=== PATIENT | female | born 1955 | race African-American/Black ===

== ENCOUNTER 2024-12-07 21:19 | Inpatient (IN) | payer OTHER, MEDICAID ==
[~2024-12-07] VITALS: Ht 162.6 cm; Wt 119.3 kg
[2024-12-07 22:21] LABS: BASOPHILS % 0.7 % (0.0-2.0); EOSINOPHILS % 3.8 % (0.0-5.0); HEMATOCRIT. 34.1 % (36.0-48.0); HEMOGLOBIN. 10.8 g/dL (12.0-16.0); LYMPHOCYTES % 26.6 % (20.0-50.0); MEAN CORPUSCULAR HEMOGLOBIN 26.2 pg (28.0-32.0); MEAN CORPUSCULAR HGB CONC 31.8 g/dL (31.0-37.0); MEAN CORPUSCULAR VOLUME 82.4 fL (81.0-99.0); MEAN PLATELET VOLUME 8.2 fl (7.4-10.4); MONOCYTES % 8.3 % (2.0-8.0); NEUTROPHILS % 60.6 % (40.0-76.0); PLATELET 270 x1000/uL (130-400); RED BLOOD CELL COUNT 4.14 mill/uL (4.2-5.4); RED CELL DISTRIBUTION WIDTH 15.5 % (11.6-14.6); WHITE BLOOD COUNT 6.8 x1000/uL (4.5-11.0)
[2024-12-07 22:39] LABS: POTASSIUM 5.3 mEq/L (3.5-5.1)
[2024-12-07 22:41] LABS: CALCIUM 8.5 mg/dL (8.7-10.4)
[2024-12-08] VITALS (9 sets, daily range): BP systolic 112–180; BP diastolic 47–95; PULSE 70–100; RESP 18–20; TEMP 36.3–36.6; O2SAT 95–100
[2024-12-08] MEDS ORDERED: FUROSEMIDE 100MG/10ML VIAL IV ONE (00:45)
[2024-12-08] MEDS ORDERED: CALCIUM GLUCONATE 1,000 MG in DEXT 5% WATER 100 ML IV ONE (00:45)
[2024-12-08] MEDS: INSULIN REGULAR (HUMULIN R) 1000UNITS/10ML VIAL IV ONE (01:43)
[2024-12-08] MEDS: DEXTROSE 50% WATER 50ML SYRINGE IV ONE (01:43)
[2024-12-08] MEDS: CALCIUM GLUCONATE 1GM PREMIX 50 ML IV NR (01:44)
[2024-12-08] MEDS: FUROSEMIDE 40MG/4ML VIAL IV NR (01:44)
[2024-12-08] MEDS: ALBUTEROL (0.083%) 2.5MG/3ML NEB HHN SCH (02:15)
[2024-12-08] MEDS: LISINOPRIL 40MG TABLET PO ONE (02:55)
[2024-12-08] MEDS ORDERED: CLONIDINE 0.1MG TABLET PO PRN (05:45)
[2024-12-08] MEDS ORDERED: DEXTROSE 50% WATER 50ML SYRINGE IV PRN (05:45)
[2024-12-08] MEDS ORDERED: LIP40 PO (05:55)
[2024-12-08] MEDS ORDERED: LISI40TA13 MT (05:55)
[2024-12-08] MEDS ORDERED: NALOXONE HCL 0.4MG/ML VIAL IV PRN (06:00)
[2024-12-08] MEDS: HYDROCODONE/ACETAMINOPHEN 10/325MG TABLET PO PRN (06:06)
[2024-12-08] MEDS: HYDRALAZINE HCL 50MG TABLET PO SCH (06:06)
[2024-12-08] MEDS: SODIUM ZIRCONIUM CYCLOSILICATE 10GM/PACKET PO NR (06:07)
[2024-12-08] MEDS: INSULIN LISPRO 100 UNITS/ML SUBCUT SCH (06:14)
[2024-12-08] MEDS: BLOOD SUGAR DIAGNOSTIC STRIP TEST SCH (06:14)
[2024-12-08] MEDS: AMLODIPINE 10MG TABLET PO SCH (08:35)
[2024-12-08] MEDS ORDERED: DOCUSATE SODIUM 100MG CAPSULE PO PRN (09:15)
[2024-12-08] MEDS ORDERED: ACETAMINOPHEN 325MG TABLET PO PRN (09:15)
[2024-12-08] MEDS ORDERED: IPRATROPIUM/ALBUTEROL 0.5-3(2.5)MG/3ML NEB HHN PRN (09:15)
[2024-12-08] MEDS: ACETAMINOPHEN 325MG TABLET PO PRN (09:32)
[2024-12-08] MEDS: SODIUM CHLORIDE 0.45% 1,000 ML IV SCH (09:33)
[2024-12-08] MEDS ORDERED: SODIUM ZIRCONIUM CYCLOSILICATE 10GM/PACKET PO ONE (10:00)
[2024-12-08 10:59] LABS: POTASSIUM 5.5 mEq/L (3.5-5.1)
[2024-12-08 11:01] LABS: CALCIUM 9.1 mg/dL (8.7-10.4)
[2024-12-08 11:05] LABS: CREATININE 3.2 mg/dL (0.6-1.0)
[2024-12-08 11:14] LABS: HEMATOCRIT 31.7 % (36.0-48.0); HEMOGLOBIN 9.6 g/dL (12.0-16.0); MEAN CORPUSCULAR HEMOGLOBIN 25.2 pg (28.0-32.0); MEAN CORPUSCULAR HGB CONC 30.4 g/dL (31.0-37.0); MEAN CORPUSCULAR VOLUME 82.8 fL (81.0-99.0); PLATELET 237 x1000/uL (130-400); RED BLOOD CELL COUNT 3.83 mill/uL (4.2-5.4); RED CELL DISTRIBUTION WIDTH 15.3 % (11.6-14.6); WHITE BLOOD COUNT 7.2 x1000/uL (4.5-11.0)
[2024-12-08 13:10] LABS: *AMPHETAMINES SCREEN URINE NEGATIVE (NEGATIVE); *BARBITURATES SCREEN URINE NEGATIVE (NEGATIVE); *BENZODIAZEPINES SCREEN URINE NEGATIVE (NEGATIVE); *COCAINE SCREEN URINE NEGATIVE (NEGATIVE); CANNABINOID URINE SCREEN NEGATIVE (NEGATIVE); ECSTASY MDMA SCREEN URINE NEGATIVE (NEGATIVE); METHADONE URINE SCREEN NEGATIVE (NEGATIVE); OPIATES URINE SCREEN PRESUMPTIVE POSITIVE (NEGATIVE); PHENCYCLIDINE URINE SCREEN NEGATIVE (NEGATIVE)
[2024-12-08 13:27] LABS: D-DIMER 1.17 mg/L FEU (<0.50); PROTHROMBIN TIME 10.4 sec (9.6-11.0)
[2024-12-08 13:28] LABS: CALCIUM 8.9 mg/dL (8.7-10.4); CARBON DIOXIDE 23 mEq/L (21-32); CHLORIDE 108 mEq/L (98-107); POTASSIUM 5.3 mEq/L (3.5-5.1); SODIUM 141 mEq/L (136-145)
[2024-12-08 13:33] LABS: CREATININE 3.1 mg/dL (0.6-1.0); GLUCOSE 95 mg/dL (70-105); IRON 39 ug/dL (50-170)
[2024-12-08 13:34] LABS: TRIGLYCERIDE 123 mg/dL (0-150); UREA NITROGEN BLOOD 34 mg/dL (9-23)
[2024-12-08 13:35] LABS: ALANINE AMINOTRANSFERASE 10 IU/L (10-49); ALBUMIN 3.8 g/dL (3.2-4.8); ASPARTATE AMINOTRANSFERASE 13 IU/L (<34); CHOLESTEROL 165 mg/dL (<200); CREATINE KINASE 308 IU/L (34-145); LDL CHOLESTEROL 98 mg/dL (5-100)
[2024-12-08 13:36] LABS: BILIRUBIN TOTAL 0.3 mg/dL (0.1-1.0); HDL CHOLESTEROL 48 mg/dL (>65); PROTEIN TOTAL 6.7 g/dL (6.0-8.3); TOTAL IRON BINDING CAPACITY 300 ug/dl (250-425)
[2024-12-08 13:37] LABS: BILIRUBIN DIRECT < 0.1 mg/dL (<=3.0)
[2024-12-08 13:40] LABS: FERRITIN 154 ng/mL (10-291); T4 FREE 1.12 ng/dL (0.89-1.76); THYROID STIMULATING HORMONE 0.31 uIU/mL (0.55-4.78); TRIOIODOTHYRONINE TOTAL 1.29 ng/ml (0.60-1.81)
[2024-12-08 13:41] LABS: FOLIC ACID (FOLATE) SERUM > 20.00 ng/mL (>5.38); VITAMIN B12 SERUM 1323 pg/mL (211-911)
[2024-12-08 20:11] LABS: CLARITY URINE CLOUDY (CLEAR); COLOR URINE YELLOW (YELLOW); PH URINE 5.5 (4.5-8.0); SPECIFIC GRAVITY URINE 1.012 (1.005-1.030)
[2024-12-08 20:12] LABS: GLUCOSE URINE NEGATIVE (NEGATIVE); KETONES URINE NEGATIVE (NEGATIVE); LEUKOCYTE ESTERASE URINE TRACE (NEGATIVE); NITRITE URINE NEGATIVE (NEGATIVE); OCCULT BLOOD URINE NEGATIVE (NEGATIVE); PROTEIN URINE 3+ (NEGATIVE); UROBILINOGEN URINE 0.2 E.U./dL (0.2-1.0)
[2024-12-08 20:13] LABS: BACTERIA URINE 1+; RBC URINE 0-2 /hpf (0-2); SQUAMOUS EPITHELIAL CELL URINE 2+ /lpf (RARE/1+)
[2024-12-08] MEDS: ATORVASTATIN CALCIUM 40MG TABLET PO SCH (20:35)
[2024-12-08 22:14] LABS: CREATINE KINASE 308 IU/L (34-145); CREATINE KINASE MB FRACTION 3.1 ng/mL (0.5-3.6)
[2024-12-08 22:15] LABS: TROPONIN I HIGH SENSITIVITY 23 ng/L (3.0-34)
[2024-12-09] VITALS: BP 138/61; PULSE 69; RESP 18; TEMP 35.9; O2SAT 99
[2024-12-09 04:00] VITALS: BP 152/66; PULSE 89; RESP 18; TEMP 36.2; O2SAT 98
[2024-12-09 05:59] LABS: BASOPHILS % 0.5 % (0.0-2.0); EOSINOPHILS % 4.5 % (0.0-5.0); HEMOGLOBIN. 10.1 g/dL (12.0-16.0); LYMPHOCYTES % 29.7 % (20.0-50.0); MEAN CORPUSCULAR HEMOGLOBIN 25.8 pg (28.0-32.0); MEAN CORPUSCULAR HGB CONC 31.6 g/dL (31.0-37.0); MEAN CORPUSCULAR VOLUME 81.7 fL (81.0-99.0); MEAN PLATELET VOLUME 8.4 fl (7.4-10.4); MONOCYTES % 8.1 % (2.0-8.0); NEUTROPHILS % 57.2 % (40.0-76.0); PLATELET 224 x1000/uL (130-400); RED BLOOD CELL COUNT 3.92 mill/uL (4.2-5.4); RED CELL DISTRIBUTION WIDTH 15.1 % (11.6-14.6)
[2024-12-09 06:25] LABS: CREATINE KINASE MB FRACTION 2.9 ng/mL (0.5-3.6)
[2024-12-09 06:27] LABS: POTASSIUM 4.9 mEq/L (3.5-5.1)
[2024-12-09 06:28] LABS: CALCIUM 8.9 mg/dL (8.7-10.4)
[2024-12-09 07:43] LABS: BG BASE EXCESS -5.5 mmol/L (-2.0-3.0); BG CARBOXYHEMOGLOBIN 0.4 % (0.5-1.5); BG DEOXYHEMOGLOBIN 3.4 % (0.0-5.0); BG HCO3 ACT 19.3 mmol/L (21.0-28.0); BG METHEMOGLOBIN 0.3 % (0.5-1.5); BG OXYGEN SATURATION 96.6 % (94.0-98.0); BG OXYHEMOGLOBIN 95.9 % (94.0-98.0); BG PCO2 34.8 mmHg (32.0-45.0); BG PH 7.361 (7.350-7.450); BG PO2 87.2 mmHg (83.0-108.0); BG TOTAL HEMOGLOBIN 10.9 g/dL (12.0-16.0)
[2024-12-09 07:44] LABS: BG FRACTION INSPIRED OXYGEN 21; BG VENT MODE ROOM AIR
[2024-12-09 08:00] VITALS: BP 116/42; PULSE 78; RESP 18; TEMP 36.6; O2SAT 96
[2024-12-09] MEDS: ONDANSETRON HCL 4MG/2ML INJ IV PRN (09:01)
[2024-12-09 12:00] VITALS: BP 148/68; PULSE 88; RESP 18; TEMP 36.7; O2SAT 97
[2024-12-09 16:00] VITALS: BP 124/44; PULSE 81; RESP 18; TEMP 36.6; O2SAT 97
[2024-12-09 19:55] LABS: CREATININE URINE RANDOM 111.5 mg/dL
[2024-12-09 20:00] VITALS: BP 146/52; PULSE 90; RESP 18; TEMP 36.5; O2SAT 99
[2024-12-10] VITALS: BP_SYST 141; BP_SYST 146; BP_DIAS 52; PULSE 90; PULSE 94; RESP 18; TEMP 36.5; O2SAT 99
[2024-12-10 04:00] VITALS: BP 141/53; PULSE 96; RESP 18; TEMP 36.6; O2SAT 99
[2024-12-10 06:20] LABS: POTASSIUM 5.5 mEq/L (3.5-5.1)
[2024-12-10 06:22] LABS: CALCIUM 9.4 mg/dL (8.7-10.4)
[2024-12-10 06:26] LABS: CREATININE 3.3 mg/dL (0.6-1.0)
[2024-12-10 06:29] LABS: BASOPHILS % 0.4 % (0.0-2.0); HEMATOCRIT. 29.9 % (36.0-48.0); HEMOGLOBIN. 9.5 g/dL (12.0-16.0); MEAN CORPUSCULAR HEMOGLOBIN 26.3 pg (28.0-32.0); MEAN CORPUSCULAR HGB CONC 31.9 g/dL (31.0-37.0); MEAN CORPUSCULAR VOLUME 82.5 fL (81.0-99.0); MEAN PLATELET VOLUME 8.6 fl (7.4-10.4); NEUTROPHILS % 68.6 % (40.0-76.0); PLATELET 245 x1000/uL (130-400); RED BLOOD CELL COUNT 3.62 mill/uL (4.2-5.4); RED CELL DISTRIBUTION WIDTH 15.4 % (11.6-14.6)
[2024-12-10 08:00] VITALS: BP 172/79; PULSE 100; RESP 19; TEMP 38.4; O2SAT 98
[2024-12-10] MEDS: SODIUM POLYSTYRENE SULFONATE 15 G/60 ML BOT PO NR (10:00)
[2024-12-10 12:00] VITALS: BP 133/56; PULSE 96; RESP 19; TEMP 37.3; O2SAT 96
[2024-12-10 16:00] VITALS: BP 141/65; PULSE 100; RESP 19; TEMP 37.1; O2SAT 98
[2024-12-10 18:06] LABS: POTASSIUM 5.4 mEq/L (3.5-5.1)
[2024-12-10 20:00] VITALS: BP 146/51; PULSE 109; RESP 20; TEMP 37.1; O2SAT 93
[2024-12-11] VITALS (11 sets, daily range): BP systolic 125–149; BP diastolic 51–74; PULSE 80–111; RESP 18–21; TEMP 36.2–37.9; O2SAT 0–97
[2024-12-11] MEDS ORDERED: SODIUM ZIRCONIUM CYCLOSILICATE 10GM/PACKET PO ONE (01:00)
[2024-12-11] MEDS: SODIUM ZIRCONIUM CYCLOSILICATE 10GM/PACKET PO NR (01:17)
[2024-12-11] MEDS: ALBUTEROL (0.083%) 2.5MG/3ML NEB HHN NR (01:22)
[2024-12-11] MEDS: FUROSEMIDE 100MG/10ML VIAL IV NR (01:35)
[2024-12-11] MEDS: INSULIN REGULAR (HUMULIN R) 1000UNITS/10ML VIAL IV NR (01:40)
[2024-12-11] MEDS: DEXTROSE 50% WATER 50ML SYRINGE IV NR (01:41)
[2024-12-11] MEDS: SODIUM BICARBONATE 8.4% 50MEQ/50ML SYR IV NR (01:41)
[2024-12-11] MEDS: CALCIUM CHLORIDE 1GM/10ML SYR IV NR (02:25)
[2024-12-11 06:47] LABS: BASOPHILS % 0.4 % (0.0-2.0); EOSINOPHILS % 1.1 % (0.0-5.0); HEMATOCRIT. 29.3 % (36.0-48.0); HEMOGLOBIN. 9.3 g/dL (12.0-16.0); LYMPHOCYTES % 19.2 % (20.0-50.0); MEAN CORPUSCULAR HEMOGLOBIN 26.2 pg (28.0-32.0); MEAN CORPUSCULAR HGB CONC 31.9 g/dL (31.0-37.0); MEAN CORPUSCULAR VOLUME 82.1 fL (81.0-99.0); MEAN PLATELET VOLUME 8.6 fl (7.4-10.4); MONOCYTES % 9.4 % (2.0-8.0); NEUTROPHILS % 69.9 % (40.0-76.0); PLATELET 243 x1000/uL (130-400); RED BLOOD CELL COUNT 3.56 mill/uL (4.2-5.4); RED CELL DISTRIBUTION WIDTH 15.2 % (11.6-14.6)
[2024-12-11 06:56] LABS: POTASSIUM 4.1 mEq/L (3.5-5.1)
[2024-12-11 06:57] LABS: CALCIUM 9.8 mg/dL (8.7-10.4)
[2024-12-11 07:02] LABS: CREATININE 3.3 mg/dL (0.6-1.0)
[2024-12-11] MEDS: CEFTRIAXONE 1GM/50ML 50 ML IV SCH (14:50)
[2024-12-12] VITALS: BP 115/55; PULSE 82; RESP 20; TEMP 37; O2SAT 96
[2024-12-12 04:00] VITALS: BP 119/53; PULSE 93; RESP 18; TEMP 37.2; O2SAT 97
[2024-12-12 08:00] VITALS: BP 146/64; PULSE 92; RESP 20; TEMP 36.4; O2SAT 98
[2024-12-12 12:00] VITALS: BP 152/56; PULSE 85; RESP 20; TEMP 36.5; O2SAT 98
[2024-12-12 20:00] VITALS: BP 133/48; PULSE 94; RESP 18; TEMP 36.5; O2SAT 98
[2024-12-13] VITALS: BP 120/56; PULSE 69; RESP 20; TEMP 36.4; O2SAT 95
[2024-12-13 04:00] VITALS: BP 139/59; PULSE 88; RESP 19; TEMP 36; O2SAT 95
[2024-12-13 07:53] LABS: ANTI-NUCLEAR ANTIBODIES DIRECT Negative; COMPLEMENT C3 135 mg/dL
[2024-12-13 07:54] LABS: COMPLEMENT C4 31 mg/dL
[2024-12-13 08:00] VITALS: BP 133/47; PULSE 80; RESP 19; TEMP 36.4; O2SAT 97
[2024-12-13 12:00] VITALS: BP 150/69; PULSE 81; RESP 19; TEMP 36.6; O2SAT 100
[2024-12-13 12:54] LABS: BASOPHILS % 0.3 % (0.0-2.0); EOSINOPHILS % 4.3 % (0.0-5.0); HEMATOCRIT. 30.7 % (36.0-48.0); HEMOGLOBIN. 9.5 g/dL (12.0-16.0); LYMPHOCYTES % 20.5 % (20.0-50.0); MEAN CORPUSCULAR HEMOGLOBIN 25.9 pg (28.0-32.0); MEAN CORPUSCULAR HGB CONC 30.9 g/dL (31.0-37.0); MEAN CORPUSCULAR VOLUME 83.8 fL (81.0-99.0); MEAN PLATELET VOLUME 8.4 fl (7.4-10.4); MONOCYTES % 10.9 % (2.0-8.0); PLATELET 215 x1000/uL (130-400); RED BLOOD CELL COUNT 3.67 mill/uL (4.2-5.4); RED CELL DISTRIBUTION WIDTH 14.7 % (11.6-14.6); WHITE BLOOD COUNT 5.5 x1000/uL (4.5-11.0)
[2024-12-13 13:11] LABS: CARBON DIOXIDE 24 mEq/L (21-32); CHLORIDE 105 mEq/L (98-107); POTASSIUM 4.5 mEq/L (3.5-5.1); SODIUM 139 mEq/L (136-145)
[2024-12-13 13:16] LABS: GLUCOSE 132 mg/dL (70-105)
[2024-12-13 13:17] LABS: UREA NITROGEN BLOOD 28 mg/dL (9-23)
[2024-12-13 13:19] LABS: PHOSPHORUS 3.8 mg/dL (2.5-4.9)
[2024-12-13 16:00] VITALS: BP 116/44; PULSE 79; RESP 18; TEMP 36.5; O2SAT 97
[2024-12-13 20:00] VITALS: BP 125/46; PULSE 80; RESP 18; TEMP 36.5; O2SAT 95
[2024-12-13] MEDS: HYDROCODONE/ACETAMINOPHEN 5/325MG TABLET PO PRN (21:20)
[2024-12-14] VITALS: BP 112/75; PULSE 78; RESP 17; TEMP 36.4; O2SAT 99
[2024-12-14 04:00] VITALS: BP 118/53; PULSE 85; RESP 17; TEMP 36.4; O2SAT 99
[2024-12-14 07:15] LABS: CARBON DIOXIDE 24 mEq/L (21-32); CHLORIDE 106 mEq/L (98-107); POTASSIUM 4.2 mEq/L (3.5-5.1); SODIUM 140 mEq/L (136-145)
[2024-12-14 07:16] LABS: CALCIUM 9.2 mg/dL (8.7-10.4)
[2024-12-14 07:21] LABS: CREATININE 2.8 mg/dL (0.6-1.0); GLUCOSE 124 mg/dL (70-105); UREA NITROGEN BLOOD 29 mg/dL (9-23)
[2024-12-14 07:23] LABS: PHOSPHORUS 3.9 mg/dL (2.5-4.9)
[2024-12-14 08:00] VITALS: BP 127/53; PULSE 80; RESP 19; TEMP 36.6; O2SAT 98
[2024-12-14 08:30] LABS: BASOPHILS % 0.5 % (0.0-2.0); EOSINOPHILS % 5.5 % (0.0-5.0); HEMATOCRIT. 31.1 % (36.0-48.0); HEMOGLOBIN. 9.9 g/dL (12.0-16.0); LYMPHOCYTES % 24.4 % (20.0-50.0); MEAN CORPUSCULAR HEMOGLOBIN 26.3 pg (28.0-32.0); MEAN CORPUSCULAR HGB CONC 31.8 g/dL (31.0-37.0); MEAN CORPUSCULAR VOLUME 82.6 fL (81.0-99.0); MEAN PLATELET VOLUME 8.5 fl (7.4-10.4); MONOCYTES % 9.5 % (2.0-8.0); NEUTROPHILS % 60.1 % (40.0-76.0); PLATELET 216 x1000/uL (130-400); RED BLOOD CELL COUNT 3.77 mill/uL (4.2-5.4); RED CELL DISTRIBUTION WIDTH 14.7 % (11.6-14.6); WHITE BLOOD COUNT 4.9 x1000/uL (4.5-11.0)
[2024-12-14 12:00] VITALS: BP 146/63; PULSE 78; RESP 19; TEMP 36.6; O2SAT 96
[2024-12-14] MEDS: MAGNESIUM 2 G PREMIX 50 ML IV NR (12:05)
[2024-12-14] MEDS ORDERED: HYDR50TA40 MT (15:05)
[2024-12-14] MEDS ORDERED: AMLO10TA80 MT (15:05)
[2024-12-14 16:00] VITALS: BP 152/62; PULSE 97; RESP 18; TEMP 36.6; O2SAT 97
[2024-12-14 20:00] VITALS: BP 135/52; PULSE 78; RESP 21; TEMP 36.7; O2SAT 98
[2024-12-15] VITALS: BP 120/41; PULSE 68; RESP 16; TEMP 36.7; O2SAT 99
[2024-12-15 06:19] LABS: BASOPHILS % 0.5 % (0.0-2.0); EOSINOPHILS % 4.3 % (0.0-5.0); HEMATOCRIT. 30.2 % (36.0-48.0); HEMOGLOBIN. 9.6 g/dL (12.0-16.0); LYMPHOCYTES % 22.3 % (20.0-50.0); MEAN CORPUSCULAR HGB CONC 31.8 g/dL (31.0-37.0); MEAN CORPUSCULAR VOLUME 81.9 fL (81.0-99.0); MEAN PLATELET VOLUME 9.4 fl (7.4-10.4); MONOCYTES % 9.4 % (2.0-8.0); NEUTROPHILS % 63.5 % (40.0-76.0); PLATELET 210 x1000/uL (130-400); RED BLOOD CELL COUNT 3.69 mill/uL (4.2-5.4); RED CELL DISTRIBUTION WIDTH 14.8 % (11.6-14.6); WHITE BLOOD COUNT 5.7 x1000/uL (4.5-11.0)
[2024-12-15 06:57] LABS: CHLORIDE 106 mEq/L (98-107); POTASSIUM 4.5 mEq/L (3.5-5.1); SODIUM 141 mEq/L (136-145)
[2024-12-15 06:58] LABS: CARBON DIOXIDE 24 mEq/L (21-32)
[2024-12-15 06:59] LABS: CALCIUM 9.4 mg/dL (8.7-10.4)
[2024-12-15 07:03] LABS: CREATININE 2.8 mg/dL (0.6-1.0); GLUCOSE 120 mg/dL (70-105)
[2024-12-15 07:04] LABS: UREA NITROGEN BLOOD 30 mg/dL (9-23)
[2024-12-15 07:06] LABS: PHOSPHORUS 4.1 mg/dL (2.5-4.9)
[2024-12-15 08:00] VITALS: BP 148/64; PULSE 85; RESP 19; TEMP 36.5; O2SAT 99
[2024-12-15 12:00] VITALS: BP 125/53; PULSE 72; RESP 18; TEMP 36.6; O2SAT 100
[2024-12-15 12:44] VITALS: BP 125/63; PULSE 72; TEMP 97.9; O2SAT 98
[2024-12-15 16:00] VITALS: BP 162/60; PULSE 78; RESP 18; TEMP 37.1; O2SAT 100
== END 2024-12-15 18:46 | disposition home or self-care (01) | DRG 683 ==
LOC: ER 21:19 → 8WST 12-08 02:05 → EDBEDREQ 12-08 02:18 → EDBEDREQTM 12-08 02:18 → EDBEDREQ 12-08 02:45
PROVIDERS: ADMIT Internal Medicine; ATTEND Internal Medicine
DX: I12.9 Hypertensive chronic kidney disease with stage 1 through stage 4 chronic kidney disease, or unspecified chronic kidney disease (principal); N17.9 Acute kidney failure, unspecified; Z68.42 Body mass index [BMI] 45.0-49.9, adult; E87.5 Hyperkalemia; I16.0 Hypertensive urgency; E11.22 Type 2 diabetes mellitus with diabetic chronic kidney disease; D64.9 Anemia, unspecified; N18.9 Chronic kidney disease, unspecified; E66.9 Obesity, unspecified; Z79.899 Other long term (current) drug therapy
CPT/HCPCS: 36415; 36600; 71045; 76770; 80048; 80061; 80076; 80305; 81003; 82375; 82550; 82553; 82570; 82607; 82728; 82746; 82805; 82962; 83036; 83540; 83550; 83735; 83880; 84100; 84132; 84156; 84439; 84443; 84480; 84484; 85025; 85027; 85379; 86038; 86160; 93005; 94070; 94640; 99291; J0610; J0696; J1815; J1940; J2405; J3475; J3490; J7060